=== PATIENT | female | born 1960 | race Caucasian/White ===

== ENCOUNTER → 2023-12-15 09:59 | Outpatient (CLI) | payer BC, SELFPAY ==
[2023-12-15 18:45] LABS: Cholesterol 164 mg/dL (140-199); HDL Cholesterol 43 mg/dL (40-60); LDL Cholesterol Calculated 103 mg/dL (<100); Triglycerides 92 mg/dL (35-150)
[2023-12-15 18:48] LABS: High Sensitivity CRP - Cardiac 0.5 mg/L (1.0-3.0)
[2023-12-15 19:34] LABS: Vitamin B12 719 pg/mL (239-931)
== END ==
PROVIDERS: PCP Family Medicine; Visit Provider Family Medicine
DX: E78.2 Mixed hyperlipidemia (principal); Z82.0 Family history of epilepsy and other diseases of the nervous system; Z71.3 Dietary counseling and surveillance
CPT/HCPCS: 80061; 82525; 82607; 83090; 83525; 84482; 84630; 86140

== ENCOUNTER → 2024-10-29 11:08 | Outpatient (CLI) | payer BC, SELFPAY ==
--- NOTE | 2024-10-29 11:10 | DI.MG.S_ITS ---
MM screening mammo BI: 10/29/2024. BI-RADS: 1 CLINICAL: 64-year old female for bilateral screening mammogram. Tyrer-Cuzick lifetime risk of 10.6%. No personal or first-degree family history of breast cancer. PRIOR EXAMS: 09/08/2023. MAMMOGRAPHY TECHNIQUE: 2D and 3D (tomosynthesis) digital mammographic views obtained, with additional images as needed for full coverage. Current study was also evaluated with a Computer Aided Detection (CAD) system. DENSITY C. The breasts are heterogeneously dense, which may obscure small masses. MAMMOGRAPHY FINDINGS Bilateral: No suspicious mass, asymmetry, microcalcification, or other abnormality seen. No significant change from comparison. IMPRESSION: * No evidence of malignancy. RECOMMENDATIONS Bilateral * Annual screening mammography. OVERALL ASSESSMENT CATEGORY BI-RADS-1: Negative. [employer] recommends annual screening mammography beginning at age 40 for women with average risk of breast cancer. ELECTRONICALLY SIGNED: Celia Valentin M.D. on 10/29/2024 at 03:22:55 PM PT Interpreting Station ID: [id number]
== END ==
PROVIDERS: PCP Family Medicine; Referring Provider Family Medicine; Visit Provider Family Medicine
DX: Z12.31 Encounter for screening mammogram for malignant neoplasm of breast (principal); R92.333 Mammographic heterogeneous density, bilateral breasts
CPT/HCPCS: 77063; 77067